=== PATIENT | female | born 1950 | race Caucasian/White ===

== ENCOUNTER 2023-11-14 08:42 | Observation (INO) | payer OTHER, SELFPAY ==
[2023-11-14] VITALS (16 sets, daily range): BP systolic 114–208; BP diastolic 62–142; PULSE 85–153; RESP 16–26; TEMP 36.6–36.9; O2SAT 97–100; BMI 22.8
--- NOTE | ~2023-11-14 | CT_ITS ---
EXAMINATION: CT cervical spine wo con DATE: 11/14/2023 09:40 INDICATION: Syncope. Head injury. TECHNIQUE: Computed tomography (CT) of the cervical spine was performed without intravenous contrast. Automated exposure control and iterative reconstruction technique were employed. The dose-length pro duct was 99.37 mGy-cm. COMPARISON: None FINDINGS: There is a 2.2 cm nodule in right thyroid lobe. There is 7 degrees levocurvature of upper c ervical spine and 4 degrees dextrocurvature of lower cervical spine. Vertebral body heights are erika l. There is severely decreased disc height at C4-C5 and C5-C6. There is interbody fusion at C6-C7. Th ere is moderately decreased disc height at C7-T1. The following disc levels are specifically discusse d: C2-C3: There is moderate bilateral uncovertebral joint osteoarthritis. There is moderate bilateral fa cet joint osteoarthritis. There is mild left neural foraminal stenosis. There is no central canal hussain nosis. C3-C4: There is moderate right and mild left uncovertebral joint osteoarthritis. There is severe bila teral facet joint osteoarthritis. There is mild bilateral neural foraminal stenosis. There is no cent ral canal stenosis. C4-C5: There is severe bilateral uncovertebral joint osteoarthritis. There is moderate right and desmond re left facet joint osteoarthritis. There is mild bilateral neural foraminal stenosis. There is mild central canal stenosis. C5-C6: There is ankylosis of the uncovertebral joints with mild right and moderate left uncovertebral joint hypertrophy. There is severe left facet joint osteoarthritis. There is ankylosis of right face t joint with severe hypertrophy. There is mild bilateral neural foraminal stenosis. There is mild shweta tral canal stenosis. C6-C7: There is ankylosis of the uncovertebral joints with mild bilateral uncovertebral joint hypertr ophy. There is ankylosis of the facet joints with hypertrophy. There is no neural foraminal stenosis. There is mild central canal stenosis. C7-T1: There is severe bilateral uncovertebral joint osteoarthritis. There is severe bilateral facet joint osteoarthritis. There is mild bilateral neural foraminal stenosis. There is mild central canal stenosis. IMPRESSION: 1. No fracture. 2. Severe cervical spondylosis. Reviewed, dictated and finalized at location A.
--- NOTE | ~2023-11-14 | CT_ITS ---
EXAMINATION: CT brain wo con DATE: 11/14/2023 09:40 INDICATION: Syncope. Head injury. TECHNIQUE: Computed tomography (CT) of the head was performed without intravenous contrast. The mA wa s adjusted according to patient size. Iterative reconstruction technique was employed. The dose-lengt h product was 529.67 mGy-cm. COMPARISON: None FINDINGS: There is diffuse brain volume loss. There are scattered areas of low attenuation in the cer ebral white matter. There is no intracranial hemorrhage, acute infarction, or abnormal intracranial m ass lesion. The ventricles are normal in size. The orbits are normal. There is mild mucosal thickenin g in the paranasal sinuses. The mastoid air cells are normal. There is cerumen in the external audito ry canals. There are multiple skin masses of the scalp. IMPRESSION: 1. Moderate nonspecific cerebral white matter disease, which likely represents chronic small vessel i schemic disease. Reviewed, dictated and finalized at location A. IMPRESSION: 1. Moderate nonspecific cerebral white matter disease, which likely represents chronic small vessel ischemic disease.
--- NOTE | ~2023-11-14 | CT_ITS ---
EXAMINATION: CTA chest PE protocol DATE: 11/14/2023 11:43 INDICATION: Syncope. COVID-19 positive. TECHNIQUE: Computed tomography angiography (CTA) of the chest was performed with 100 mL Omnipaque-350 intravenous contrast timed to evaluate the pulmonary arteries. Coronal maximum intensity projection 3D-reconstructions were created by the technologist. Automated exposure control and iterative reconst ruction technique were employed. The dose-length product was 154.37 mGy-cm. COMPARISON: Chest 2 views 11/14/2023 FINDINGS: There is a small pneumatocele in right upper lobe. There is mild atelectasis bilaterally. N o pleural effusion. There is a 2.2 cm nodule in right thyroid lobe. The heart size is normal. There a re coronary artery calcifications. No pericardial effusion. There is ectasia of ascending aorta measu ring 4.2 cm. There is no pulmonary embolus. There is thoracolumbar levoscoliosis and severe spondylos is. There is a chronic compression fracture of T11. IMPRESSION: 1. No pulmonary embolus. 2. Right thyroid nodule. Thyroid ultrasound is recommended for risk stratification. Reviewed, dictated and finalized at location A. IMPRESSION: 1. No pulmonary embolus. 2. Right thyroid nodule. Thyroid ultrasound is recommended for risk stratificat ion.
--- NOTE | ~2023-11-14 | US_ITS ---
EXAMINATION: US carotid duplex BI DATE: 11/14/2023 20:04 INDICATION: Syncope. TECHNIQUE: Grayscale, color Doppler, and pulsed Doppler images of the cervical carotid arteries were obtained. The degree of vessel stenosis is placed in one of the following categories: normal, <50%, 5 0-69%, >=70% but less than near-occlusion, near-occlusion, or total occlusion. Note that percent sten osis relative to normal distal artery lumen diameter is indirectly measured from velocity measurement s as described by Tomer, et al. Radiology 2003; 229:340-346. COMPARISON: None. FINDINGS: RIGHT: The right common carotid artery (CCA) peak systolic velocity (PSV) is 69 cm/s. The right internal car otid artery (ICA) PSV is 74 cm/s. The right ICA end-diastolic velocity (EDV) is 17 cm/s. The right IC A/CCA PSV ratio is 1.1. Grayscale and color Doppler images yield an estimate of <50% diameter reducti on from plaque in the ICA. There is antegrade flow in the right vertebral artery. LEFT: The left CCA PSV is 63 cm/s. The left ICA PSV is 93 cm/s. The left ICA EDV is 28 cm/s. The left ICA/C CA PSV ratio is 1.5. Grayscale and color Doppler images yield an estimate of <50% diameter reduction from plaque in the ICA. There is antegrade flow in the left vertebral artery. IMPRESSION: 1. <50% stenosis in the right internal carotid artery. 2. <50% stenosis in the left internal carotid artery. Reviewed, dictated and finalized at location A.
--- NOTE | ~2023-11-14 | US_ITS ---
EXAMINATION: US thyroid DATE: 11/14/2023 16:35 INDICATION: Right thyroid nodule. TECHNIQUE: Multiple ultrasound images of the thyroid were obtained. COMPARISON: Chest CT 11/14/2023 FINDINGS: The right thyroid lobe measures 4.0 x 2.9 x 3.0 cm. The left thyroid lobe measures 2.8 x 0.9 x 1.4 c m. In the right thyroid lobe, there is a 2.9 cm predominantly solid, isoechoic, wider than tall nodu le with smooth margins without echogenic foci (TI-RADS TR3). IMPRESSION: 1. Right thyroid nodule. Consider ultrasound-guided fine needle aspiration. Reviewed, dictated and finalized at location A.
--- NOTE | ~2023-11-14 | XR_ITS ---
Clinical Indication: Syncope PA and lateral views of the chest: Comparison: None Findings: The lungs are clear, without evidence of focal consolidation or pleural effusion. Cardiome diastinal silhouette is within normal limits. Bones and soft tissues are unremarkable. Impression: Normal chest. Reviewed, dictated and finalized at location . Impression: Normal chest.
--- NOTE | ~2023-11-14 | US_ITS ---
EXAMINATION: US venous doppler [facility] DATE: 11/15/2023 15:12 INDICATION: Lower limb edema. TECHNIQUE: Grayscale ultrasound images without and with compression and Doppler ultrasound images of the bilateral lower extremity veins were obtained. COMPARISON: None. FINDINGS: The visualized portions of right common femoral vein, profunda (deep) femoral vein, femoral vein, pop liteal vein, peroneal veins, posterior tibial veins, and greater saphenous vein outflow are patent. The visualized portions of left common femoral vein, profunda femoral vein, femoral vein, popliteal v ein, peroneal veins, posterior tibial veins, and greater saphenous vein outflow are patent. IMPRESSION: 1. No deep venous thrombosis. Reviewed, dictated and finalized at location A.
--- NOTE | 2023-11-14 08:53 | ECG_ITS ---
[facility] [address] Test Date: 2023-11-14 Pat Name: Beth Ballesteros Department: Room: Gender: F Material Disposition Inspector: : 1950 Requested By: Virgilio Jones Order Number: [id number] Waylon MD: Yao Roberts M.D. Measurements Intervals [place] Rate: 89 P: 26 AR: 150 QRS: 69 QRSD: 72 T: 10 QT: 351 QTc: 429 Interpretive Statements SINUS RHYTHM LOW QRS VOLTAGE IN EXTREMITY LEADS [QRS DEFLECTION < 0.5 mV IN LIMB LEADS] NONSPECIFIC T-WAVE ABNORMALITY ABNORMAL ECG No previous ECG available for comparison Electronically Signed On 11-14-2023 14:47:58 CDT by Yao Roberts M.D.
--- NOTE | 2023-11-14 09:04 | ED.FALL ---
HPI - Fall General Chief Complaint: Fall <DANITZA Garg Last Filed: 11/14/23 16:25> Stated Complaint: 2 falls yesterday, pulse is wild <DANITZA Garg Last Filed: 11/14/23 16:25> Time Seen by Provider: 11/14/23 09:02 <DANITZA Garg Last Filed: 11/14/23 16:25> Source: patient and family <DANITZA Garg Last Filed: 11/14/23 16:25> Mode of arrival: ambulatory <DANITZA Garg Last Filed: 11/14/23 16:25> Limitations: no limitations <DANITZA Garg Last Filed: 11/14/23 16:25> History of Present Illness HPI Narrative: Patient is 73-year-old female who presents the ED with report of syncope and multiple falls. Patient reports she has fell increasingly weak over the last few days. She had a fall yesterday in which she lost her balance. Did not injure herself in the fall. She then had a syncopal episode while doing the dishes, witnessed by . Has been reports patient lost consciousness for approximately 1 minute. He denied any seizure-like activity. Patient does admit to feeling lightheaded prior to the syncopal episode. She remembers doing the dishes and waking up on the ground. EMS was contacted at that time. Has been reports EMS stated that her heart rate was all over the place at that time. Patient refused transport/hospital evaluation. patient states she has otherwise been in her normal state of health. Denies any recent cough, cold symptoms. Denies chest pain, shortness of breath, headache, vision changes, focal weakness. <DANITZA Garg Last Filed: 11/14/23 16:25> Related Data Home Medications: Home Medications Medication Instructions Recorded Confirmed No Home Medications 03/03/22 11/14/23 <DANITZA Garg Last Filed: 11/14/23 16:25> Allergies/Adverse Reactions: Allergies Allergy/AdvReac Type Severity Reaction Status Date / Time No Known Allergies Allergy Verified 11/14/23 14:32 <Yuridia Rocha PA-C - Last Filed: 11/14/23 16:25> Review of Systems Review of Systems: CONSTITUTIONAL: Denies fever, chills, or sweats. ENT: Denies vision changes, rhinorrhea, congestion, sore throat. CARDIOVASCULAR: Denies chest pain. RESPIRATORY: Denies cough or dyspnea. GASTROINTESTINAL: Denies abdominal pain, nausea, vomiting MUSCULOSKELETAL: Denies back pain, extremity pain, myalgia. NEUROLOGIC: See HPI <Yuridia Rocha PA-C - Last Filed: 11/14/23 16:25> All systems reviewed & are unremarkable except as noted in HPI and below <Yuridia Rocha PA-C - Last Filed: 11/14/23 16:25> [facility] Past Medical History Medical History: Medical History (Updated 11/14/23 @ 16:17 by Rabia Sebastian PA-C) Hypercholesterolemia Hypothyroidism Type 2 diabetes mellitus <Yuridia Rocha PA-C - Last Filed: 11/14/23 16:25> Surgical History Surgical History: Surgical History (Updated 11/14/23 @ 15:34 by Rabia Sebastian PA-C) History of tonsillectomy <Yuridia Rocha PA-C - Last Filed: 11/14/23 16:25> Family History Family History: Family History Father Diabetes mellitus CAD (coronary artery disease) Mother Lung cancer Sibling Malignant neoplasm of prostate <Yuridia Rocha PA-C - Last Filed: 11/14/23 16:25> Social History Social History: Social History (Updated 11/14/23 @ 15:35 by Rabia Sebastian PA-C) Social History: Surrogate medical decision maker: Miguel Ballesteros, spouse. Code status: Full code. Smoking status: Never smoker Second hand tobacco smoke exposure: Yes Alcohol intake: never Substance use: never Do You Feel Safe in your Home?: Yes Lack of Transportation: No Lack of Food: Never True Current Housing: I Have Housing Concerned About Future Housing: No Difficulty Paying Gas/Electric
[2023-11-14 09:14] LABS: Basophils Percent Auto 0.1 % (0.2-1.2); Hematocrit 44.3 % (37.0-47.0); Hemoglobin 14.3 g/dL (12.0-15.0); Immature Granulocyte Absolute 0.03 K/mm3 (0.00-0.031); Immature Granulocyte Percent A 0.4 % (0-0.5); Immature Platelet Fraction Pct 8.4 % (0.9-11.2); Lymphocytes Absolute Auto 1.14 K/mm3 (0.9-3.2); Lymphocytes Percent Auto 13.8 % (18.3-44.2); Mean Corpuscular HGB Conc 32.3 g/dl (32-36); Mean Corpuscular Hemoglobin 28.5 pg (26-34); Mean Corpuscular Volume 88.2 fl (80-100); Mean Platelet Volume 12.1 fl (7.4-10.4); Monocytes Absolute Auto 1.2 K/mm3 (0.1-0.6); Monocytes Percent Auto 14.2 % (2.6-8.5); Neutrophils Absolute Auto 5.9 K/mm3 (1.3-6.7); Neutrophils Percent Auto 71.5 % (45.5-73.1); Platelet Count Result 129 k/mm3 (150-375); Red Blood Count 5.02 M/mm3 (4.2-5.4); Red Cell Distribution Width 13.6 % (11.5-14.5); White Blood Count 8.3 K/mm3 (4.5-10.0)
[2023-11-14 09:22] LABS: Alanine Aminotransferase 20 U/L (6-35); Albumin Level 3.6 g/dL (3.5-5.1); Alkaline Phosphatase 70 U/L (38-126); Anion Gap 7 mmol/L (4-12); Aspartate Amino Transferase 43 U/L (14-36); Bilirubin,Total 0.9 mg/dL (0.2-1.3); Blood Urea Nitrogen 21 mg/dL (7-17); Calcium 8.8 mg/dL (8.4-10.2); Carbon Dioxide 24 mmol/L (22-30); Chloride 108 mmol/L (98-107); Estimated Glomerular Filt Rate > 60; Glucose 178 mg/dL (65-110); Potassium 3.5 mmol/L (3.4-5.0); Sodium 139 mmol/L (137-145)
[2023-11-14 09:39] LABS: Appearance Urine Clear (Clear); Bacteria Urine None Seen /hpf; Bilirubin Urine Negative (Negative); Blood Urine 1+ (Negative); Color Urine Yellow (Yellow); Glucose Urine UA Trace mg/dL (Negative); Ketones Urine Negative (Negative); Leukocyte Esterase Ur Negative LEU/UL (Negative); Need Manual Microscopic Reviewed; Nitrate Urine Negative (Negative); Protein Urine 1+ mg/dL (Negative); RBC Urine 0-2 /hpf (0-2); Specific Grav Ur 1.024 (1.001-1.035); Squamous Epithelial Cell Urine None Seen /hpf (Few); Urobilinogen Urine 0.2 mg/dL (<2.0); WBC Urine 0-5 /hpf (0-3)
[2023-11-14 09:51] LABS: Creatine Kinase 691 U/L (30-135)
[2023-11-14 09:56] LABS: Add Urine Microscopic? YES
[2023-11-14] MEDS: SODIUM CHLORIDE 0.9% IV 1,000 ML 999 ML IV CONT ×2 (10:05→12:16)
[2023-11-14 10:19] LABS: Troponin I 0.446 ng/mL (0.000-0.034)
[2023-11-14 10:40] LABS: Lactic Acid Reflex 1.4 mmol/L (0.7-2.0)
[2023-11-14 10:49] LABS: NT Pro B Type Natriuretic Pept 709 pg/mL (19.9-100)
[2023-11-14 11:08] LABS: Influenza A QL RT-PCR Negative (Negative); Influenza B QL RT-PCR Negative (Negative); RSV RNA, RT-PCR Negative (Negative); SARS-CoV-2 RNA PCR Positive (Negative)
--- NOTE | 2023-11-14 11:17 | PC.NURSE ---
assumed care of pt from fredy huntley. pt resting on stretcher, updated pt and family of plan of care. no questions or complaints at this time
[2023-11-14 12:42] LABS: Troponin I 0.559 ng/mL (0.000-0.034)
--- NOTE | 2023-11-14 12:59 | ECG_ITS ---
[facility] [address] Test Date: 2023-11-14 Pat Name: Beth Ballesteros Department: Room: 207 Gender: F Extract Wringer: : 1950 Requested By: Yuridia Magaña Order Number: [id number] Reading MD: Yao Roberts M.D. Measurements Intervals [place] Rate: 119 P: 58 VA: 168 QRS: 95 QRSD: 72 T: 84 QT: 311 QTc: 438 Interpretive Statements SINUS TACHYCARDIA VERY POOR ECG QUALITY NO FURTHER DIAGNOSIS CAN NOT BE MADE Compared to ECG 11/14/2023 08:59:08 SIGNIFICANT BASELINE ARTIFACT IS PRESENT MAKING THIS TRACING NEARLY UNINTERPRETABLE Electronically Signed On 11-14-2023 14:59:04 CDT by Yao Roberts M.D.
[2023-11-14] MEDS: LORazepam INJ (*CRX) 2 MG/ML VIAL 0.5 MG IV PUSH (13:18)
--- NOTE | 2023-11-14 14:31 | ADMGEN ---
This patient, Beth Ballesteros, was admitted to IMU Room 207-01 at 1418. Patient/family oriented to hospital policies and general routines including ID bracelet, bed and alarms, visiting hours, pain management, procedures, bathroom and other care routines, personal items, smoking policy, room service/diet, and visiting hours. Information on how to activate the Rapid Response Team has been discussed. Patient/Family are encouraged to report perceived risks to care and to ask questions if they do not understand what they are told or what they should do.
--- NOTE | 2023-11-14 15:23 | PM.IMHP ---
H&P: HPI History of Present Illness Date/Time: 11/14/23 17:00 Chief Complaint: Syncope and fall. Narrative: This is a 73-year-old female with type 2 diabetes mellitus, hypercholesterolemia, and hypothyroidism for which she has chosen not to take medication who presented to the emergency department for evaluation after a syncope and falls. The patient is a poor historian and her provides the majority of the following history. Last evening she was doing the dishes when she began to feel a bit lightheaded. She then proceeded to lose consciousness and fall backwards onto the floor. She was unconscious for upwards of 1 minute before coming to without confusion. There were no reports of seizure activity, tongue bite, or incontinence. EMS was summoned and they encouraged her to come to the hospital for evaluation as her heart rate was apparently erratic however she declined. This morning she had another fall of which she is vague and her encouraged her to come in for evaluation. At the time my evaluation she is resting and has no complaints. With specific questioning she does endorse feeling a bit weak the last couple of days and she has had some sinus congestion and a runny nose. She denies headache, fever, sore throat, chest and pleuritic pain, shortness of breath, orthopnea, edema, nausea, vomiting, diarrhea, and dysuria. In the ED: She afebrile on arrival. Blood pressures have been running in the 140s to 160 systolic. She was in a sinus rhythm with rates in 80s on arrival however she had an episode where her heart rate jumped into the 150s associated with an increased in her blood pressure to 200 systolic. Labs were significant for a WBC count of 8.3, hemoglobin 14.3, BUN 21, creatinine 0.80, glucose 178, lactic acid 1.4, AST 43, total CK 691, troponin 0.446, proBNP 709. EKG showed sinus rhythm with nonspecific T-wave abnormalities. She tested positive for SARS-CoV-2 by PCR. Chest x-ray showed a normal chest. Chest CTA showed no evidence of pulmonary embolism but did note a right thyroid nodule. Head CT was negative for acute findings but showed moderate nonspecific cerebral white matter disease. Cervical spine CT showed no fracture but did note severe cervical spondylosis. She was see used a L of normal saline and 0.5 mg IV lorazepam after she became anxious and she is being admitted in this setting for further evaluation. Review of Systems Review of Systems: 12 systems were reviewed and are negative except for as per HPI. [facility] Past Medical History Medical History (Updated 11/14/23 @ 22:45 by Rabia Sebastian PA-C) Dementia Suspected dementia, not formally diagnosed. Hypercholesterolemia Hypothyroidism Type 2 diabetes mellitus Surgical History Surgical History (Updated 11/14/23 @ 15:34 by Rabia Sebastian PA-C) History of tonsillectomy Family History Family History Father Diabetes mellitus CAD (coronary artery disease) Mother Lung cancer Sibling Malignant neoplasm of prostate Social History Social History (Updated 11/14/23 @ 15:35 by Rabia Sebastian PA-C) Social History: Surrogate medical decision maker: Miguel Ballesteros, spouse. Code status: Full code. Smoking status: Never smoker Second hand tobacco smoke exposure: Yes Alcohol intake: never Substance use: never Do You Feel Safe in your Home?: Yes Lack of Transportation: No Lack of Food: Never True Current Housing: I Have Housing Concerned About Future Housing: No Difficulty Paying Gas/Electric Bills: No Difficulty Paying for Meds: No Currently Unemployed: No Education: High School Diploma/GED Difficulty w/ Childcare or Family Care: No Additional living arrangements comments: Lives with spouse in [place]. Spiritual care concerns: No Meds Home Medications and Allergies Home Medications Medication Instructions Recorded Confirmed Type N
--- NOTE | 2023-11-14 15:54 | PM.CNCAR ---
Assessment and Plan Assessment and plan (1) Syncope: Code(s): R55 - Syncope and collapse Status: Acute Plan This is a 73-year-old woman who apparently had a syncopal episode at home. She has no previous cardiac history she of course has risk factor for coronary disease being diabetic but other than this is not able to provide much history. The chart to indicate evidence of dementia and that may be what is presenting her to provide any direct history to me at the time of consultation in her room. We will watch her telemetry while she is in the hospital and review her echocardiogram when it is done. She does have risk factors for coronary disease however this does not seem to be the presentation of myocardial ischemia. Yao Roberts MD [facility] History of Present Illness History of Present Illness Consult date/time: 11/14/23 15:54 Reason For Visit: Syncope/COVID/+Troponin/Weakness Narrative: This is a 73-year-old woman who I am seeing at the request of the hospitalist because of an apparent syncopal episode. Patient was seen in room 207 in the IMU and at this time she is not capable of providing any history of the events that led to her coming into the hospital. I found her awake and responsive but her responses to questions as to why she came to our was brought to the hospital repeatedly lead to silent and staring off in the distance. History of according to the chart is at the patient has been feeling very weak lately and has had a number of falls in her residence. Apparently she lives with her . Today she was brought to the hospital because she had an episode of loss of consciousness that was for about 1 minute in duration and was brought in for evaluation. She apparently was quite tachycardic on admission the 1st EKG however had so much baseline artifact that was nearly uninterpretable. The 2nd tracing shows sinus rhythm with APCs. Of course her troponin levels were checked and they were found to be mildly elevated at 0.4 and 0.5. She is not having any symptoms of chest pain. She is oriented to self and location but other that that seems very difficult to get any add direct history from. She did test positive in the emergency room for COVID-19. As such she is hospitalized and is in isolation. Her chest x-ray showed no pulmonary infiltrates ago lungs look somewhat outlook a abdirizak in my opinion however the radiologist report was essentially negative. Her chest CT showed no evidence of a pulmonary embolus. According to records that are in the chart she has a history of type 2 diabetes and hypothyroidism both of which are untreated medically at her own choice. She apparently is a lifelong nonsmoker according to the records and does not take any home medications at all. Her telemetry shows sinus rhythm with APCs. Review of Systems Review of Systems: ROS unobtainable: Yes unobtainable due to mental status PMFSH Past Medical History Medical History (Updated 11/14/23 @ 15:36 by Rabia Sebastian PA-C) Hypercholesterolemia Hypothyroidism Type 2 diabetes mellitus Surgical History Surgical History (Updated 11/14/23 @ 15:34 by Rabia Sebastian PA-C) History of tonsillectomy Family History Family History Father Diabetes mellitus CAD (coronary artery disease) Mother Lung cancer Sibling Malignant neoplasm of prostate Social History Social History (Updated 11/14/23 @ 15:35 by Rabia Sebastian PA-C) Social History: Surrogate medical decision maker: Miguel Ballesteros, spouse. Code status: Full code. Smoking status: Never smoker Second hand tobacco smoke exposure: Yes Alcohol intake: never Substance use: never Do You Feel Safe in your Home?: Yes Lack of Transportation: No Lack of Food: Never True Current Housing: I Have Housing Concerned About Future Housing: No Difficulty Paying Gas/Electric Bills: No Difficulty Pay
[2023-11-14 17:13] LABS: Glucose Point of Care 202 mg/dl (65-105)
[2023-11-14] MEDS: LACTATED RINGERS 1,000 ML 75 ML IV CONT (17:26)
[2023-11-14] MEDS: INSULIN ASPART (*BKC) 100 UNITS/ML SUB-Q ×2 (17:26→20:37)
[2023-11-14 18:32] LABS: Hemoglobin A1C 6.4 % (<5.7)
[2023-11-14 18:38] LABS: Troponin I 0.531 ng/mL (0.000-0.034)
[2023-11-14 20:27] LABS: Glucose Point of Care 239 mg/dl (65-105)
[2023-11-14] MEDS: REMDESIVIR 200 MG/NS 250 ML 200 MG/250 ML BAG 250 MG IVPB (23:44)
[2023-11-15] VITALS (20 sets, daily range): BP systolic 103–161; BP diastolic 59–96; PULSE 73–100; RESP 18–20; TEMP 36.6–37.1; O2SAT 93–100
--- NOTE | 2023-11-15 | ECHO_ITS ---
Patient Info Name: Beth Ballesteros Age: 73 years : 1950 Gender: Female Ht: 57 in Wt: 98 lbs BSA: 1.34 m2 HR: 90 bpm BP: 103 / 59 mmHg Heart Rhythm: Sinus Rhythm Technical Quality: Fair Exam Date: 11/15/2023 10:50 AM Exam Location: Echo Lab Patient Status: Outpatient Admit Date: 11/14/2023 Staff Ordering Physician: Rabia Sebastian PA-C Reinforcing Steel Machine Operator: Aimee Banda RDCS Attending Provider: Duane Isbell MD Referring Physician: Jaz SAAVEDRA; Exam Type: CA echo doppler color flow Study Info Indications R00.0 - Tachycardia, unspecified R55 - Syncope and collapse Complete two-dimensional, color flow and Doppler transthoracic echocardiogram is performed with contrast to opacify the left ventricle and to improve the deliniation of the left ventricle endocardial borders. Contrast/Agitated Saline Contrast/Ag. Saline: Definity Amount: 2.00 ml Administered By: Aimee Banda RDCS Existing IV Access: Yes IV Access Condition: patent with no signs of infiltration Summary 1. Left ventricular chamber dimension is normal. 2. Left ventricular systolic function is normal, estimated at >70%. 3. The left ventricular diastolic function is grade I diastolic dysfunction. 4. Right ventricular systolic function is normal. 5. Left atrial chamber dimension is mildly enlarged. 6. No significant valvular disease. Left Ventricle Left ventricular chamber dimension is normal. Left ventricular systolic function is normal, estimated at >70%. The left ventricular diastolic function is grade I diastolic dysfunction. Right Ventricle Right ventricular chamber dimension is normal. Right ventricular systolic function is normal. Left Atria Left atrial chamber dimension is mildly enlarged. Right Atria Right atrial chamber dimension is normal. Aortic Valve The aortic valve is not well visualized. There is no aortic valve regurgitation. Pulmonic Valve The pulmonic valve is not well visualized. Mitral Valve There is trace mitral valve regurgitation. Tricuspid Valve There is trace tricuspid valve regurgitation. Pericardium/Pleural There is no pericardial effusion. Inferior Vena Cava Normal inferior vena cava with >50% collapse upon inspiration consistent with normal right atrial pressure, 3 mmHg. Aorta The aortic root size at the sinus of Valsalva is normal. Left Ventricular Outflow Tract Name Value Normal LVOT 2D LVOT Diameter 1.9 cm LVOT Doppler LVOT Peak Gradient 3 mmHg LVOT Mean Gradient 1 mmHg LVOT VTI 15 cm LVOT VTI/AV VTI Ratio 0.7 LVOT Stroke Volume 41 ml LVOT CO 3.2 l/min LVOT CI 2.4 l/min/m2 Pulmonic Valve Name Value Normal RVOT Doppler RVOT Peak Gradient
[2023-11-15 05:11] LABS: Hematocrit 40.5 % (37.0-47.0); Hemoglobin 13.1 g/dL (12.0-15.0); Immature Platelet Fraction Pct 11.9 % (0.9-11.2); Mean Corpuscular HGB Conc 32.3 g/dl (32-36); Mean Corpuscular Hemoglobin 28.6 pg (26-34); Mean Corpuscular Volume 88.4 fl (80-100); Mean Platelet Volume 12.8 fl (7.4-10.4); Platelet Count Result 70 k/mm3 (150-375); Red Blood Count 4.58 M/mm3 (4.2-5.4); Red Cell Distribution Width 13.2 % (11.5-14.5); White Blood Count 5.1 K/mm3 (4.5-10.0)
[2023-11-15 05:24] LABS: Alanine Aminotransferase 20 U/L (6-35); Albumin Level 3.1 g/dL (3.5-5.1); Alkaline Phosphatase 70 U/L (38-126); Anion Gap 5 mmol/L (4-12); Aspartate Amino Transferase 56 U/L (14-36); Bilirubin,Total 0.8 mg/dL (0.2-1.3); Blood Urea Nitrogen 24 mg/dL (7-17); CRP 5.1 mg/dL (<1.0); Calcium 7.7 mg/dL (8.4-10.2); Carbon Dioxide 23 mmol/L (22-30); Chloride 109 mmol/L (98-107); Cholesterol 127 mg/dL (0-200); Creatine Kinase 995 U/L (30-135); Estimated Glomerular Filt Rate 34; Glucose 134 mg/dL (65-110); HDL Direct 47 mg/dL; Lactate Dehydrogenase 384 U/L (120-246); Potassium 3.1 mmol/L (3.4-5.0); Sodium 137 mmol/L (137-145); Triglycerides 82 mg/dL (<150)
[2023-11-15 05:33] LABS: LDL Cholesterol Direct 62 mg/dL
[2023-11-15] MEDS: LACTATED RINGERS 1,000 ML 75 ML IV CONT (07:00)
[2023-11-15 08:34] LABS: Glucose Point of Care 114 mg/dl (65-105)
--- NOTE | 2023-11-15 08:54 | PM.IMPN ---
Progress Note: A&P Assessment and Plan (1) Syncope: Code(s): R55 - Syncope and collapse Status: Acute (2) Elevated troponin: Code(s): R79.89 - Other specified abnormal findings of blood chemistry Status: Acute (3) Rhabdomyolysis: Code(s): M62.82 - Rhabdomyolysis Status: Acute (4) COVID-19: Code(s): U07.1 - COVID-19 Status: Acute (5) Right thyroid nodule: Code(s): E04.1 - Nontoxic single thyroid nodule Status: Acute (6) Hypothyroidism: Code(s): E03.9 - Hypothyroidism, unspecified Status: Acute (7) Type 2 diabetes mellitus: Code(s): E11.9 - Type 2 diabetes mellitus without complications Status: Acute (8) Hypercholesterolemia: Code(s): E78.00 - Pure hypercholesterolemia, unspecified Status: Acute (9) TERRY (acute kidney injury): Code(s): N17.9 - Acute kidney failure, unspecified Status: Acute Plan syncope, Possible vasovagal syncope Or due to orthostatic hypotension Neuro check Orthostatic test no focal weakness, denies headache patient is a sinus rhythm, no significant arrhythmia on telemetry monitoring Continue telemetry monitoring follow echocardiogram cardiology was consulted, follow recommendation Elevated troponin Patient denies chest pain , possible due to COVID infection pending echocardiogram Follow-up land leases and rentals manager recommendation COVID infection X-ray does not show acute cardiopulmonary issue, pulse ox 98 room air No need antiviral medication treatment Monitor vital signs and pulse ox acute renal failure creatinine 1.5 above baseline 0.7 to October 09 urinalysis shows no pyuria, RBC 0-2 possible due to dehydration, CK 995, TERRY is unlikely related to rhabdomyolysis start lactated Ringer 125 mL/hour Follow-up BMP type 2 diabetes Continue insulin sliding scale a.c. and q.h.s. Subjective Date/time seen: 11/15/23 08:54 Interval history: I saw exam patient today, patient is mentally clear, not oriented x3, has general weakness, afebrile, blood pressure stable pulse ox 98 on room air Exam Narrative: General: Thin, chronically ill-appearing elderly female in the semi-[place] position in bed. Weight: 44.5 kg. BMI: 22.8. HEENT: Small bruise under the right eye. She is wearing glasses. Hard of hearing. Soft tissue growth on the right upper eyelid. PERRL, EOMI. Sclera anicteric. Conjunctiva mildly injected. Tacky mucous membranes. Oropharynx not visualized. Neck: Supple. No midline vertebral tenderness. Respiratory: Respirations are nonlabored and lungs are clear to auscultation. Cardiovascular: Regular rate and rhythm with S1-S2. Occasional ectopy. Gastrointestinal: Abdomen is soft, flat, nontender, and nondistended with positive bowel sounds. Skin: Warm and dry. Extremities: No cyanosis or clubbing. Trace lashae ankle edema bilaterally. Neurological: Alert and oriented x2. Cranial nerves 2-12 are grossly intact. Speech is clear. No facial asymmetry. No pronator drift. Hand relief map modeler and foot pushes are weak but seem equal bilaterally. Generalized weakness without gross focal findings. She had a hard time understanding how to do the rapid alternating movements. Psychiatric: Cooperative. Seems forgetful. Poor eye contact. Objective Data Vital Signs Vital Signs: Vital Signs - 24 hr 11/14/23 09:59 11/14/23 10:00 11/14/23 10:03 Temperature Pulse Rate 85 90 93 Respiratory Rate Blood Pressure 140/77 149/75 H 145/90 H Pulse Oximetry Oxygen Delivery 11/14/23 11:17 11/14/23 13:15 11/14/23 13:50 Temperature 98.2 F 98.1 F 98.1 F Pulse Rate 86 153 H 115 H Respiratory Rate 20 20 16 Blood Pressure 160/87 H 208/142 H 151/83 H Pulse Oximetry 100 97 100 Oxygen Delivery 11/14/23 14:03 11/14/23 16:00 11/14/23 16:00 Temperature 98.1 F 98.3 F Pulse Rate 103 H 103 H Respiratory Rate 18 26 H Blood Pressure 145/77 H 148/85 H Pulse Oximetry 10
[2023-11-15] MEDS: LACTATED RINGERS 1,000 ML 125 ML IV CONT ×2 (09:09→15:59)
[2023-11-15 09:11] LABS: Basophils Percent Auto 0.2 % (0.2-1.2); Hematocrit 41.2 % (37.0-47.0); Hemoglobin 13.2 g/dL (12.0-15.0); Immature Granulocyte Absolute 0.02 K/mm3 (0.00-0.031); Immature Granulocyte Percent A 0.4 % (0-0.5); Immature Platelet Fraction Pct 12.3 % (0.9-11.2); Lymphocytes Absolute Auto 0.51 K/mm3 (0.9-3.2); Lymphocytes Percent Auto 9.3 % (18.3-44.2); Mean Corpuscular Hemoglobin 28.4 pg (26-34); Mean Corpuscular Volume 88.6 fl (80-100); Mean Platelet Volume 12.4 fl (7.4-10.4); Monocytes Absolute Auto 0.1 K/mm3 (0.1-0.6); Monocytes Percent Auto 1.8 % (2.6-8.5); Neutrophils Absolute Auto 4.8 K/mm3 (1.3-6.7); Neutrophils Percent Auto 88.3 % (45.5-73.1); Platelet Count Result 71 k/mm3 (150-375); Red Blood Count 4.65 M/mm3 (4.2-5.4); Red Cell Distribution Width 13.7 % (11.5-14.5); White Blood Count 5.5 K/mm3 (4.5-10.0)
--- NOTE | 2023-11-15 09:26 | PM.PNCARD ---
Progress Note: A&P Assessment and Plan (1) Syncope: Code(s): R55 - Syncope and collapse Status: Acute Assessment and Plan: Check orthostatic vital signs. Continue to monitor tele while in the hospital. If echocardiogram unremarkable, no additional cardiac workup recommended. (2) TERRY (acute kidney injury): Code(s): N17.9 - Acute kidney failure, unspecified Status: Acute Assessment and Plan: In setting of rhabdomyolysis (3) Rhabdomyolysis: Code(s): M62.82 - Rhabdomyolysis Status: Acute Assessment and Plan: Receiving IVFs, management as per primary team. (4) Type 2 diabetes mellitus: Code(s): E11.9 - Type 2 diabetes mellitus without complications Status: Acute Assessment and Plan: Management as per primary team (5) COVID-19: Code(s): U07.1 - COVID-19 Status: Acute Assessment and Plan: On Remdesivir (6) Elevated troponin: Code(s): R79.89 - Other specified abnormal findings of blood chemistry Status: Acute Assessment and Plan: Mildly elevated but flat. No ischemic EKG changes. This is not consistent with an acute coronary syndrome. Likely demand ischemia. If echocardiogram unremarkable, no additional cardiac workup recommended. Plan Recommendations and plan discussed with Hospitalist. Subjective Date/time seen: 11/15/23 09:26 Interval history: Reason for visit: Syncope HPI: This is a 73-year-old woman who I am seeing at the request of the hospitalist because of an apparent syncopal episode. Patient was seen in room 207 in the IMU and at this time she is not capable of providing any history of the events that led to her coming into the hospital. I found her awake and responsive but her responses to questions as to why she came to our was brought to the hospital repeatedly lead to silent and staring off in the distance. History of according to the chart is at the patient has been feeling very weak lately and has had a number of falls in her residence. Apparently she lives with her . Today she was brought to the hospital because she had an episode of loss of consciousness that was for about 1 minute in duration and was brought in for evaluation. She apparently was quite tachycardic on admission the 1st EKG however had so much baseline artifact that was nearly uninterpretable. The 2nd tracing shows sinus rhythm with APCs. Of course her troponin levels were checked and they were found to be mildly elevated at 0.4 and 0.5. She is not having any symptoms of chest pain. She is oriented to self and location but other that that seems very difficult to get any add direct history from. She did test positive in the emergency room for COVID-19. As such she is hospitalized and is in isolation. Her chest x-ray showed no pulmonary infiltrates ago lungs look somewhat outlook a abdirizak in my opinion however the radiologist report was essentially negative. Her chest CT showed no evidence of a pulmonary embolus. According to records that are in the chart she has a history of type 2 diabetes and hypothyroidism both of which are untreated medically at her own choice. She apparently is a lifelong nonsmoker according to the records and does not take any home medications at all. Her telemetry shows sinus rhythm with APCs. Date of service 11/14: Patient feeling okay today. No more episodes of syncope or symptoms of presyncope. Tele with sinus rhythm, sinus tachycardia, PACs. Review of Systems Review of Systems: All systems reviewed & are unremarkable except as noted in HPI and below (HPI) Exam Const: General: comfortable and no acute distress Other: Patient is very hard of hearing HENMT: Mouth: Yes dry mucous membranes Eyes: General: appearance normal, both eyes and all related structures Sclera: sclerae normal Resp: Effort & Inspection: normal respiratory effort Cardio: Rate: regular rate Rhythm: regular
[2023-11-15] MEDS: POTASSIUM CHLORIDE 20 MEQ PACKET (FOR LIQUID) 40 MEQ PO (09:57)
[2023-11-15] MEDS: PERFLUTREN LIPID MICROSPHERES 1.5 ML VIAL DILUTED TO 10 ML TOTAL VOLUME IV PUSH (11:00)
[2023-11-15] MEDS: INSULIN ASPART (*BKC) 100 UNITS/ML SUB-Q ×2 (11:53→21:37)
[2023-11-15 12:02] LABS: Glucose Point of Care 203 mg/dl (65-105)
--- NOTE | 2023-11-15 12:04 | IVDEFINITY ---
Prior to administration of IV Definity the patient was educated on the risks and benefits of the imaging enhancing agent including potential adverse side effects. The patient verbalized understanding. Allergies were verified. No exclusion criteria were identified and at least one of the following inclusion criteria were met: 1) physician request, 2) patient technically difficult to image (per the [place] [employer]chocardi[employer] guidelines of two or more segments not discernable within the apical view), or 3) questionable left ventricular function. ?
[2023-11-15 16:00] LABS: Glucose Point of Care 180 mg/dl (65-105)
[2023-11-15 21:06] LABS: Glucose Point of Care 202 mg/dl (65-105)
[2023-11-15] MEDS: REMDESIVIR 100 MG/NS 250 ML 100 MG/250 ML BAG 250 MG IVPB (21:37)
[2023-11-16] VITALS (19 sets, daily range): BP systolic 101–200; BP diastolic 55–121; PULSE 74–122; RESP 14–28; TEMP 36.1–36.9; O2SAT 93–100
[2023-11-16] MEDS: LACTATED RINGERS 1,000 ML 125 ML IV CONT ×2 (00:11→07:53)
[2023-11-16 04:05] LABS: Basophils Percent Auto 0.2 % (0.2-1.2); Eosinophils Percent Auto 0.2 % (0-4.4); Hemoglobin 13.2 g/dL (12.0-15.0); Immature Granulocyte Absolute 0.04 K/mm3 (0.00-0.031); Immature Granulocyte Percent A 0.8 % (0-0.5); Lymphocytes Absolute Auto 0.48 K/mm3 (0.9-3.2); Lymphocytes Percent Auto 9.4 % (18.3-44.2); Mean Corpuscular Hemoglobin 28.3 pg (26-34); Mean Corpuscular Volume 85.8 fl (80-100); Mean Platelet Volume 13.8 fl (7.4-10.4); Monocytes Absolute Auto 0.3 K/mm3 (0.1-0.6); Monocytes Percent Auto 6.5 % (2.6-8.5); Neutrophils Absolute Auto 4.2 K/mm3 (1.3-6.7); Neutrophils Percent Auto 82.9 % (45.5-73.1); Platelet Count Result 50 k/mm3 (150-375); Red Blood Count 4.66 M/mm3 (4.2-5.4); White Blood Count 5.1 K/mm3 (4.5-10.0)
[2023-11-16 04:12] LABS: INR 1.2; Prothrombin Time 15.8 Seconds (11.1-14.7)
[2023-11-16 04:13] LABS: Alanine Aminotransferase 22 U/L (6-35); Albumin Level 2.8 g/dL (3.5-5.1); Alkaline Phosphatase 61 U/L (38-126); Anion Gap 7 mmol/L (4-12); Aspartate Amino Transferase 54 U/L (14-36); Bilirubin,Total 0.9 mg/dL (0.2-1.3); Blood Urea Nitrogen 26 mg/dL (7-17); Carbon Dioxide 20 mmol/L (22-30); Chloride 109 mmol/L (98-107); Estimated Glomerular Filt Rate 40; Glucose 173 mg/dL (65-110); Potassium 3.3 mmol/L (3.4-5.0); Sodium 136 mmol/L (137-145)
[2023-11-16 07:51] LABS: Glucose Point of Care 188 mg/dl (65-105)
--- NOTE | 2023-11-16 07:56 | PM.IMPN ---
Progress Note: A&P Assessment and Plan (1) Syncope: Code(s): R55 - Syncope and collapse Status: Acute (2) Elevated troponin: Code(s): R79.89 - Other specified abnormal findings of blood chemistry Status: Acute (3) Rhabdomyolysis: Code(s): M62.82 - Rhabdomyolysis Status: Acute (4) COVID-19: Code(s): U07.1 - COVID-19 Status: Acute (5) Right thyroid nodule: Code(s): E04.1 - Nontoxic single thyroid nodule Status: Acute (6) Hypothyroidism: Code(s): E03.9 - Hypothyroidism, unspecified Status: Acute (7) Type 2 diabetes mellitus: Code(s): E11.9 - Type 2 diabetes mellitus without complications Status: Acute (8) Hypercholesterolemia: Code(s): E78.00 - Pure hypercholesterolemia, unspecified Status: Acute (9) TERRY (acute kidney injury): Code(s): N17.9 - Acute kidney failure, unspecified Status: Acute Plan syncope, Possible vasovagal syncope Or due to orthostatic hypotension Neuro check Orthostatic test no focal weakness, denies headache patient is a sinus rhythm, no significant arrhythmia on telemetry monitoring Continue telemetry monitoring follow echocardiogram cardiology was consulted, appreciate consultation Elevated troponin Patient denies chest pain , possible due to COVID infection pending echocardiogram Follow-up leather sorter recommendation COVID infection X-ray does not show acute cardiopulmonary issue, pulse ox 98 room air No need antiviral medication treatment Monitor vital signs and pulse ox acute renal failure creatinine 1.5 above baseline 0.7 to October 09 urinalysis shows no pyuria, RBC 0-2 possible due to dehydration, CK 995, TERRY is unlikely related to rhabdomyolysis start lactated Ringer 125 mL/hour Follow-up BMP type 2 diabetes Continue insulin sliding scale a.c. and q.h.s. Subjective Date/time seen: 11/16/23 07:56 Interval history: I saw exam patient today, patient is mentally clear, oriented to person, has general weakness, per patient's hospital report, patient has a trouble with walking recently because of general weakness. afebrile, blood pressure stable pulse ox 98 on room air Exam Narrative: GENERAL: Pleasant, Ill-appearing, in no acute distress. Well-nourished. - EYES: EOMI. Anicteric. - HENT: Moist mucous membranes. - LUNGS: Clear to auscultation bilaterally, no wheezing, rhonchi, or rales. - CARDIOVASCULAR: Regular rate and rhythm. No murmur. No JVD. - ABDOMEN: Soft, non-tender and non-distended. No palpable masses. - EXTREMITIES: No edema. Peripheral pulses 2+. Non-tender. - NEUROLOGIC: No focal neurological deficits. CN II-XII grossly intact. general weakness - PSYCHIATRIC: Awake, Alert and oriented x 3. Appropriate mood and affect. - SKIN: No rashes or lesions. Warm. - LYMPH: No cervical lymphadenopathy. Objective Data Vital Signs Vital Signs: Vital Signs - 24 hr 11/15/23 08:27 11/15/23 08:28 11/15/23 08:29 Temperature 98.8 F 98.8 F Pulse Rate 83 83 84 Respiratory Rate 18 18 Blood Pressure 153/72 H 153/72 H 144/78 H Pulse Oximetry 100 100 100 Oxygen Delivery 11/15/23 08:00 11/15/23 10:00 11/15/23 08:00 Temperature Pulse Rate 73 84 79 Respiratory Rate 18 Blood Pressure Pulse Oximetry 99 Oxygen Delivery Room Air 11/15/23 11:32 11/15/23 12:00 11/15/23 12:00 Temperature 98.5 F Pulse Rate 84 91 91 Respiratory Rate 18 20 Blood Pressure 146/66 H Pulse Oximetry 100 97 Oxygen Delivery Room Air 11/15/23 14:00 11/15/23 15:27 11/15/23 16:00 Temperature 98.4 F Pulse Rate 87 85 89 Respiratory Rate 20 Blood Pressure 147/82 H Pulse Oximetry 100 Oxygen Delivery 11/15/23 16:00 11/15/23 18:00 11/15/23 20:10 Temperature 98.3 F Pulse Rate 89 97 98 Respiratory Rate 18 20 Blood Pressure 110/60 Pulse Oximetry 98 93 Oxygen Delivery Room Air 11/15/23 20:15 06/0
[2023-11-16] MEDS: POTASSIUM CHLORIDE 20 MEQ PACKET (FOR LIQUID) 40 MEQ PO (08:39)
[2023-11-16 11:55] LABS: Glucose Point of Care 262 mg/dl (65-105)
[2023-11-16] MEDS: INSULIN ASPART (*BKC) 100 UNITS/ML SUB-Q ×3 (12:05→21:14)
[2023-11-16] MEDS: hydrALAZINE HCL 20 MG/ML VIAL 10 MG IV PUSH (13:09)
[2023-11-16] MEDS: ACETAMINOPHEN 325 MG TABLET 650 MG PO (13:09)
[2023-11-16 14:10] LABS: Glucose Point of Care 225 mg/dl (65-105)
[2023-11-16 16:22] LABS: Glucose Point of Care 241 mg/dl (65-105)
--- NOTE | 2023-11-16 16:23 | PC.NURSE ---
report given to Orestes RN- pt to move to room 320 via bed- at bedside -belongings with pt
[2023-11-16 16:59] LABS: Appearance Urine Cloudy (Clear); Bacteria Urine None Seen /hpf; Bilirubin Urine Negative (Negative); Blood Urine 3+ (Negative); Color Urine Yellow (Yellow); Glucose Urine UA 2+ mg/dL (Negative); Ketones Urine Trace mg/dL (Negative); Leukocyte Esterase Ur Trace LEU/UL (Negative); Need Manual Microscopic Reviewed; Nitrate Urine Negative (Negative); Protein Urine 1+ mg/dL (Negative); RBC Urine >100 /hpf (0-2); Specific Grav Ur 1.016 (1.001-1.035); Squamous Epithelial Cell Urine Occasional /hpf (Few); Urobilinogen Urine 0.2 mg/dL (<2.0); pH Urine 5.5 (5.0-9.0)
[2023-11-16 17:06] LABS: Add Urine Microscopic? YES
[2023-11-16 20:23] LABS: Glucose Point of Care 311 mg/dl (65-105)
[2023-11-16] MEDS: REMDESIVIR 100 MG/NS 250 ML 100 MG/250 ML BAG 250 MG IVPB (21:15)
[2023-11-17] VITALS (10 sets, daily range): BP systolic 115–153; BP diastolic 68–96; PULSE 72–114; RESP 16–20; TEMP 36.1–36.6; O2SAT 94–100
[2023-11-17 07:52] LABS: Glucose Point of Care 179 mg/dl (65-105)
--- NOTE | 2023-11-17 08:24 | PM.IMPN ---
Progress Note: A&P Assessment and Plan (1) Syncope: Code(s): R55 - Syncope and collapse Status: Acute (2) Elevated troponin: Code(s): R79.89 - Other specified abnormal findings of blood chemistry Status: Acute (3) Rhabdomyolysis: Code(s): M62.82 - Rhabdomyolysis Status: Acute (4) COVID-19: Code(s): U07.1 - COVID-19 Status: Acute (5) Right thyroid nodule: Code(s): E04.1 - Nontoxic single thyroid nodule Status: Acute (6) Hypothyroidism: Code(s): E03.9 - Hypothyroidism, unspecified Status: Acute (7) Type 2 diabetes mellitus: Code(s): E11.9 - Type 2 diabetes mellitus without complications Status: Acute (8) Hypercholesterolemia: Code(s): E78.00 - Pure hypercholesterolemia, unspecified Status: Acute (9) TERRY (acute kidney injury): Code(s): N17.9 - Acute kidney failure, unspecified Status: Acute Plan syncope, Possible vasovagal syncope Or due to orthostatic hypotension Neuro check Orthostatic test no focal weakness, denies headache patient is a sinus rhythm, no significant arrhythmia on telemetry monitoring Continue telemetry monitoring follow echocardiogram cardiology was consulted, appreciate consultation Elevated troponin Patient denies chest pain , possible due to COVID infection pending echocardiogram Follow-up cloth carrier recommendation COVID infection X-ray does not show acute cardiopulmonary issue, pulse ox 98 room air No need antiviral medication treatment Monitor vital signs and pulse ox acute renal failure creatinine 1.5 above baseline 0.7 to October 09 urinalysis shows no pyuria, RBC 0-2 possible due to dehydration, CK 995, TERRY is unlikely related to rhabdomyolysis received lactated Ringer 125 mL/hour Follow-up BMP type 2 diabetes Continue insulin sliding scale a.c. and q.h.s. Subjective Date/time seen: 11/17/23 08:24 Interval history: I saw exam patient today, patient is mentally clear, oriented to person, has general weakness, per patient's hospital report, patient has a trouble with walking recently because of general weakness. 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 Well-nourished. - EYES: EOMI. Anicteric. - HENT: Moist mucous membranes. - LUNGS: Clear to auscultation bilaterally, no wheezing, rhonchi, or rales. - CARDIOVASCULAR: Regular rate and rhythm. No murmur. No JVD. - ABDOMEN: Soft, non-tender and non-distended. No palpable masses. - EXTREMITIES: No edema. Peripheral pulses 2+. Non-tender. - NEUROLOGIC: No focal neurological deficits. CN II-XII grossly intact. general weakness - PSYCHIATRIC: Awake, Alert and oriented x 3. Appropriate mood and affect. - SKIN: No rashes or lesions. Warm. - LYMPH: No cervical lymphadenopathy. Objective Data Vital Signs Vital Signs: Vital Signs - 24 hr 11/16/23 08:30 11/16/23 10:35 11/16/23 10:35 Temperature Pulse Rate 87 Respiratory Rate Blood Pressure 177/99 H 167/99 H Pulse Oximetry 11/16/23 10:00 11/16/23 12:00 11/16/23 12:00 Temperature 97.1 F L Pulse Rate 75 83 84 Respiratory Rate 28 H Blood Pressure 181/121 H Pulse Oximetry 98 11/16/23 12:38 11/16/23 12:46 11/16/23 12:48 Temperature Pulse Rate 89 87 Respiratory Rate 28 H 28 H Blood Pressure 200/117 H 177/101 H 175/96 H Pulse Oximetry 11/16/23 14:00 11/16/23 16:00 11/16/23 16:00 Temperature 97.5 F L Pulse Rate 78 88 84 Respiratory Rate 20 Blood Pressure 124/67 Pulse Oximetry 97 11/16/23 16:56 11/16/23 14:30 11/16/23 15:00 Temperature 97.3 F L Pulse Rate 88 85 78 Respiratory Rate 14 24 H 24 H Blood Pressure 134/82 101/55 L 150/90 H Pulse Oximetry 98 11/16/23 20:00 11/16/23 20:00 11/16/23 20:00 Temperature 97.9 F 97.9 F 97.9 F
--- NOTE | 2023-11-17 08:34 | PCSTNOTE ---
Please refer to the Bedside Swallow Evaluation in the EMR. Please note, silent aspiration cannot be ruled out at bedside.
[2023-11-17 08:39] LABS: Basophils Percent Auto 0.1 % (0.2-1.2); Eosinophils Percent Auto 0.1 % (0-4.4); Hematocrit 41.2 % (37.0-47.0); Hemoglobin 13.9 g/dL (12.0-15.0); Immature Granulocyte Absolute 0.04 K/mm3 (0.00-0.031); Immature Granulocyte Percent A 0.5 % (0-0.5); Immature Platelet Fraction Pct 15.2 % (0.9-11.2); Lymphocytes Absolute Auto 0.59 K/mm3 (0.9-3.2); Lymphocytes Percent Auto 7.2 % (18.3-44.2); Mean Corpuscular HGB Conc 33.7 g/dl (32-36); Mean Platelet Volume 13.6 fl (7.4-10.4); Monocytes Absolute Auto 0.6 K/mm3 (0.1-0.6); Monocytes Percent Auto 7.2 % (2.6-8.5); Neutrophils Absolute Auto 6.9 K/mm3 (1.3-6.7); Neutrophils Percent Auto 84.9 % (45.5-73.1); Platelet Count Result 54 k/mm3 (150-375); Red Blood Count 4.79 M/mm3 (4.2-5.4); Red Cell Distribution Width 13.2 % (11.5-14.5); White Blood Count 8.2 K/mm3 (4.5-10.0)
[2023-11-17 09:04] LABS: Anion Gap 3 mmol/L (4-12); Blood Urea Nitrogen 20 mg/dL (7-17); Calcium 7.8 mg/dL (8.4-10.2); Carbon Dioxide 27 mmol/L (22-30); Chloride 107 mmol/L (98-107); Estimated Glomerular Filt Rate > 60; Glucose 178 mg/dL (65-110); Potassium 3.5 mmol/L (3.4-5.0); Sodium 137 mmol/L (137-145)
[2023-11-17 09:43] LABS: Magnesium 1.9 mg/dL (1.6-2.3); Phosphorus 2.5 mg/dL (2.5-4.5)
[2023-11-17] MEDS: POTASSIUM CHLORIDE 20 MEQ PACKET (FOR LIQUID) PO (09:45)
[2023-11-17 11:49] LABS: Glucose Point of Care 240 mg/dl (65-105)
[2023-11-17] MEDS: INSULIN ASPART (*BKC) 100 UNITS/ML SUB-Q ×3 (13:27→21:18)
[2023-11-17 17:00] LABS: Glucose Point of Care 231 mg/dl (65-105)
[2023-11-17] MEDS: REMDESIVIR 100 MG/NS 250 ML 100 MG/250 ML BAG 250 MG IVPB (21:19)
[2023-11-17 21:28] LABS: Glucose Point of Care 224 mg/dl (65-105)
[2023-11-18] VITALS (8 sets, daily range): BP systolic 114–148; BP diastolic 67–98; PULSE 78–110; RESP 16–26; TEMP 36.1–36.9; O2SAT 97–100
[2023-11-18 06:04] LABS: Alanine Aminotransferase 25 U/L (6-35); Albumin Level 2.7 g/dL (3.5-5.1); Alkaline Phosphatase 52 U/L (38-126); Anion Gap 2 mmol/L (4-12); Aspartate Amino Transferase 35 U/L (14-36); Basophils Percent Auto 0.1 % (0.2-1.2); Bilirubin,Total 1.1 mg/dL (0.2-1.3); Blood Urea Nitrogen 21 mg/dL (7-17); Calcium 7.8 mg/dL (8.4-10.2); Carbon Dioxide 26 mmol/L (22-30); Chloride 108 mmol/L (98-107); Eosinophils Percent Auto 0.2 % (0-4.4); Estimated Glomerular Filt Rate > 60; Glucose 192 mg/dL (65-110); Hematocrit 40.6 % (37.0-47.0); Hemoglobin 13.3 g/dL (12.0-15.0); Immature Granulocyte Absolute 0.06 K/mm3 (0.00-0.031); Immature Granulocyte Percent A 0.7 % (0-0.5); Immature Platelet Fraction Pct 16.7 % (0.9-11.2); Lymphocytes Absolute Auto 0.87 K/mm3 (0.9-3.2); Lymphocytes Percent Auto 10.3 % (18.3-44.2); Magnesium 2.1 mg/dL (1.6-2.3); Mean Corpuscular HGB Conc 32.8 g/dl (32-36); Mean Corpuscular Hemoglobin 28.4 pg (26-34); Mean Corpuscular Volume 86.8 fl (80-100); Mean Platelet Volume 13.1 fl (7.4-10.4); Monocytes Absolute Auto 0.6 K/mm3 (0.1-0.6); Monocytes Percent Auto 7.3 % (2.6-8.5); Neutrophils Absolute Auto 6.9 K/mm3 (1.3-6.7); Neutrophils Percent Auto 81.4 % (45.5-73.1); Phosphorus 2.6 mg/dL (2.5-4.5); Platelet Count Result 66 k/mm3 (150-375); Potassium 3.9 mmol/L (3.4-5.0); Red Blood Count 4.68 M/mm3 (4.2-5.4); Red Cell Distribution Width 13.2 % (11.5-14.5); Sodium 136 mmol/L (137-145); White Blood Count 8.4 K/mm3 (4.5-10.0)
[2023-11-18 06:06] LABS: INR 1.3; Prothrombin Time 17.1 Seconds (11.1-14.7)
[2023-11-18 08:07] LABS: Glucose Point of Care 202 mg/dl (65-105)
--- NOTE | 2023-11-18 08:19 | PM.IMPN ---
Progress Note: A&P Assessment and Plan (1) Syncope: Code(s): R55 - Syncope and collapse Status: Acute (2) Elevated troponin: Code(s): R79.89 - Other specified abnormal findings of blood chemistry Status: Acute (3) Rhabdomyolysis: Code(s): M62.82 - Rhabdomyolysis Status: Acute (4) COVID-19: Code(s): U07.1 - COVID-19 Status: Acute (5) Right thyroid nodule: Code(s): E04.1 - Nontoxic single thyroid nodule Status: Acute (6) Hypothyroidism: Code(s): E03.9 - Hypothyroidism, unspecified Status: Acute (7) Type 2 diabetes mellitus: Code(s): E11.9 - Type 2 diabetes mellitus without complications Status: Acute (8) Hypercholesterolemia: Code(s): E78.00 - Pure hypercholesterolemia, unspecified Status: Acute (9) TERRY (acute kidney injury): Code(s): N17.9 - Acute kidney failure, unspecified Status: Acute Plan syncope, Possible vasovagal syncope Or due to orthostatic hypotension Neuro check: no focal weakness Orthostatic test negative no focal weakness, denies headache patient is a sinus rhythm, no significant arrhythmia on telemetry monitoring no significant arrhythmia on telemetry monitoring follow echocardiogram cardiology was consulted, appreciate consultation Elevated troponin Patient denies chest pain , possible due to COVID infection pending echocardiogram consulted kaiako kura [place] ma[place], no further workup per k[place] COVID infection X-ray does not show acute cardiopulmonary issue, pulse ox 98 room air No need antiviral medication treatment under discharge Monitor vital signs and pulse ox acute renal failure creatinine 1.5 above baseline 0.7 to October 09 urinalysis shows no pyuria, RBC 0-2 possible due to dehydration, CK 995, TERRY is unlikely related to rhabdomyolysis received lactated Ringer 125 mL/hour Follow-up BMP corrected type 2 diabetes Continue insulin sliding scale a.c. and q.h.s. changed to Amaryl and metformin after discharge Subjective Date/time seen: 11/18/23 08:19 Interval history: I saw and and examined patient today. Patient ambulate herself with walker, denies chest pain abdomen pain nausea vomiting diarrhea. Patient is afebrile pressure stable, Exam Narrative: GENERAL: Pleasant, Ill-appearing, in no acute distress. Well-nourished. - EYES: EOMI. Anicteric. - HENT: Moist mucous membranes. - LUNGS: Clear to auscultation bilaterally, no wheezing, rhonchi, or rales. - CARDIOVASCULAR: Regular rate and rhythm. No murmur. No JVD. - ABDOMEN: Soft, non-tender and non-distended. No palpable masses. - EXTREMITIES: No edema. Peripheral pulses 2+. Non-tender. - NEUROLOGIC: No focal neurological deficits. CN II-XII grossly intact. general weakness - PSYCHIATRIC: Awake, Alert and oriented x 3. Appropriate mood and affect. - SKIN: No rashes or lesions. Warm. - LYMPH: No cervical lymphadenopathy. Objective Data Vital Signs Vital Signs: Vital Signs - 24 hr 11/17/23 11:51 11/17/23 13:23 11/17/23 14:00 Temperature 97.7 F Pulse Rate 85 Respiratory Rate 20 Blood Pressure 143/88 H 143/88 H Pulse Oximetry 100 Oxygen Delivery Room Air 11/17/23 16:00 11/17/23 16:00 11/17/23 16:05 Temperature 97.4 F L Pulse Rate 98 Respiratory Rate 18 Blood Pressure 115/74 115/74 117/70 Pulse Oximetry 94 Oxygen Delivery 11/17/23 12:00 11/17/23 16:00 11/17/23 20:20 Temperature 97 F L Pulse Rate 114 H 93 89 Respiratory Rate 20 Blood Pressure 147/96 H Pulse Oximetry 100 Oxygen Delivery 11/17/23 20:00 11/18/23 01:05 11/18/23 00:00 Temperature 97.2 F L Pulse Rate 78 85 Respiratory Rate 16 Blood Pressure 114/67 Pulse Oximetry 100 Oxygen Delivery Room Air 11/17/23 20:00 11/18/23 04:00 11/18/23 05:25 Temperature 98.4 F Pulse Rate 92 81 104 H Respiratory Rate 20 Blood Pressure 148/98 H Pulse
--- NOTE | 2023-11-18 08:19 | PM.DS ---
DS: Admitting Diagnosis Discharge Date 11/17 Admitting Diagnosis (1) Syncope: Code(s): R55 - Syncope and collapse Status: Acute (2) Elevated troponin: Code(s): R79.89 - Other specified abnormal findings of blood chemistry Status: Acute (3) Rhabdomyolysis: Code(s): M62.82 - Rhabdomyolysis Status: Acute (4) COVID-19: Code(s): U07.1 - COVID-19 Status: Acute (5) Right thyroid nodule: Code(s): E04.1 - Nontoxic single thyroid nodule Status: Acute (6) Hypothyroidism: Code(s): E03.9 - Hypothyroidism, unspecified Status: Acute (7) Type 2 diabetes mellitus: Code(s): E11.9 - Type 2 diabetes mellitus without complications Status: Acute (8) Hypercholesterolemia: Code(s): E78.00 - Pure hypercholesterolemia, unspecified Status: Acute (9) TERRY (acute kidney injury): Code(s): N17.9 - Acute kidney failure, unspecified Status: Acute DS: Discharge Diagnosis Discharge Diagnosis (1) Syncope: Code(s): R55 - Syncope and collapse Status: Acute (2) Elevated troponin: Code(s): R79.89 - Other specified abnormal findings of blood chemistry Status: Acute (3) Rhabdomyolysis: Code(s): M62.82 - Rhabdomyolysis Status: Acute (4) COVID-19: Code(s): U07.1 - COVID-19 Status: Acute (5) Right thyroid nodule: Code(s): E04.1 - Nontoxic single thyroid nodule Status: Acute (6) Hypothyroidism: Code(s): E03.9 - Hypothyroidism, unspecified Status: Acute (7) Type 2 diabetes mellitus: Code(s): E11.9 - Type 2 diabetes mellitus without complications Status: Acute (8) Hypercholesterolemia: Code(s): E78.00 - Pure hypercholesterolemia, unspecified Status: Acute (9) TERRY (acute kidney injury): Code(s): N17.9 - Acute kidney failure, unspecified Status: Acute DS: Summary Hospital Course Hospital Course: per H&P: This is a 73-year-old female with type 2 diabetes mellitus, hypercholesterolemia, and hypothyroidism for which she has chosen not to take medication who presented to the emergency department for evaluation after a syncope and falls. The patient is a poor historian and her provides the majority of the following history. Last evening she was doing the dishes when she began to feel a bit lightheaded. She then proceeded to lose consciousness and fall backwards onto the floor. She was unconscious for upwards of 1 minute before coming to without confusion. There were no reports of seizure activity, tongue bite, or incontinence. EMS was summoned and they encouraged her to come to the hospital for evaluation as her heart rate was apparently erratic however she declined. This morning she had another fall of which she is vague and her encouraged her to come in for evaluation. At the time my evaluation she is resting and has no complaints. With specific questioning she does endorse feeling a bit weak the last couple of days and she has had some sinus congestion and a runny nose. She denies headache, fever, sore throat, chest and pleuritic pain, shortness of breath, orthopnea, edema, nausea, vomiting, diarrhea, and dysuria. In the ED: She afebrile on arrival. Blood pressures have been running in the 140s to 160 systolic. She was in a sinus rhythm with rates in 80s on arrival however she had an episode where her heart rate jumped into the 150s associated with an increased in her blood pressure to 200 systolic. Labs were significant for a WBC count of 8.3, hemoglobin 14.3, BUN 21, creatinine 0.80, glucose 178, lactic acid 1.4, AST 43, total CK 691, troponin 0.446, proBNP 709. EKG showed sinus rhythm with nonspecific T-wave abnormalities. She tested positive for SARS-CoV-2 by PCR. Chest x-ray showed a normal chest. Chest CTA showed no evidence of pulmonary embolism but did note a right thyroid nodule. Head CT was negative for acute findin
[2023-11-18] MEDS: POTASSIUM CHLORIDE 20 MEQ PACKET (FOR LIQUID) PO (08:43)
[2023-11-18] MEDS: INSULIN ASPART (*BKC) 100 UNITS/ML SUB-Q ×2 (08:44→12:38)
[2023-11-18 11:43] LABS: Glucose Point of Care 244 mg/dl (65-105)
== END 2023-11-18 13:20 | disposition home or self-care (01) ==
LOC: ANHED 11:55 → ANHIMU 11-15 07:10 → ANH3MEDSUR 11-18 08:25 → ANHIMU 11-21 07:52
PROVIDERS: Emergency Medicine; Physician Assistant; Admitting Provider Internal Medicine; Emergency Provider Physician Assistant; PCP Family Medicine Adolescent Medicine; Visit Provider Hospitalist
DX: U07.1 COVID-19 (principal); N17.9 Acute kidney failure, unspecified; M62.82 Rhabdomyolysis; R55 Syncope and collapse; E04.1 Nontoxic single thyroid nodule; E11.9 Type 2 diabetes mellitus without complications; E03.9 Hypothyroidism, unspecified; E78.00 Pure hypercholesterolemia, unspecified; R79.89 Other specified abnormal findings of blood chemistry; I65.23 Occlusion and stenosis of bilateral carotid arteries
CPT/HCPCS: 36415; 70450; 71046; 71275; 72125; 76536; 80048; 80053; 80061; 80076; 81001; 82550; 82728; 82948; 83036; 83605; 83615; 83735; 83880; 84100; 84443; 84484; 85025; 85027; 85055; 85610; 86140; 87637; 92610; 93005; 93880; 93970; 96361; 96365; 96366; 96375; 96376; 97161; 97165; 99285; A9270; C8929; G0378; J0248; J0360; J1815; J2060; J7030; J7120; Q9957; Q9967